=== PATIENT | male | born 1960 | race Caucasian/White ===

== ENCOUNTER 2020-10-09 07:37 | Day surgery (SDC) | payer OTHER ==
[~2020-10-09 07:37] MED LIST: Midazolam 1 MG/ML 2 ML SDV ONE; Propofol 200 MG/20 ML SDV ONE; fentaNYL 100 MCG/2 ML SDV ONE
[2020-10-09] MEDS ORDERED: Dextrose 5%-Lactated Ringers 1,000 ML IV SCH (08:00)
--- NOTE | 2020-10-25 19:47 | OR ---
DATE OF PROCEDURE: 10/09/2020 SURGEON: Sebastian Clarke MD PREOPERATIVE DIAGNOSIS: History of colon polyps. POSTOPERATIVE DIAGNOSES: 1. No recurrent colon polyps. 2. Uncomplicated left colonic diverticulosis. OPERATIVE PROCEDURE: Flexible colonoscopy. ANESTHESIA: IV sedation. INDICATIONS FOR PROCEDURE: This is a 60-year-old male presenting for followup colonoscopy. He does have a history of colon polyps in the past. Plan is to proceed with a colonoscopy with biopsies and polypectomy as indicated. Potential risks including bleeding and perforation were discussed, and the patient wishes to proceed. DETAILS OF PROCEDURE: The patient was taken to the operating room. IV sedation was administered, and he was placed in a left lateral decubitus position. The initial digital rectal exam was performed, and it was unremarkable. The colonoscope was then placed into the rectum. Retroflexion revealed uncomplicated hemorrhoidal columns. The scope was then eventually passed through the cecum. There was some uncomplicated left diverticulosis otherwise there were no areas of colitis and no recurrent polyps or other signs of neoplasia. The prep was quite good with only a small amount of liquid stool being present. The scope was then withdrawn. The above findings were reconfirmed, and the procedure then concluded. Given the patient's history of colon polyps, I recommended that the next colonoscopy would be in 5 years. Sebastian Clarke MD /[id number]
== END 2020-10-09 10:48 | disposition home or self-care (01) ==
LOC: JP.SDS 07:37
PROVIDERS: ATTEND Surgery
DX: Z12.11 Encounter for screening for malignant neoplasm of colon (principal); K57.30 Diverticulosis of large intestine without perforation or abscess without bleeding; K64.9 Unspecified hemorrhoids; I10 Essential (primary) hypertension; E78.5 Hyperlipidemia, unspecified; Z88.0 Allergy status to penicillin
CPT/HCPCS: 45378; J2250; J2704; J3010; J7121